=== PATIENT | male | born 1945 | race Caucasian/White ===

== ENCOUNTER 2023-09-21 06:36 | Outpatient (RCR) | payer MEDICARE, OTHER, SELFPAY | END 2023-09-21 23:59 | disposition home or self-care (01) | LOC: RPT 06:36 | PROVIDERS: ATTENDING PHYSICIAN Family Medicine | DX: R42 Dizziness and giddiness (principal) | CPT/HCPCS: 97162 ==

== ENCOUNTER → 2024-01-13 15:52 | Outpatient (REF) | payer MEDICARE, OTHER, SELFPAY | LOC: HWRAD 15:52 | PROVIDERS: ATTENDING PHYSICIAN Internal Medicine Critical Care Medicine; FAMILY PHYSICIAN Family Medicine | DX: R91.8 Other nonspecific abnormal finding of lung field (principal) | CPT/HCPCS: 71250 ==

== ENCOUNTER 2024-09-08 08:47 | Outpatient (RCR) | payer MEDICARE, OTHER, SELFPAY | END 2024-09-08 23:59 | disposition home or self-care (01) | LOC: RPT 08:47 | PROVIDERS: ATTENDING PHYSICIAN Orthopaedic Surgery; FAMILY PHYSICIAN Family Medicine | DX: Z47.89 Encounter for other orthopedic aftercare (principal); M54.16 Radiculopathy, lumbar region; Z73.6 Limitation of activities due to disability; M62.81 Muscle weakness (generalized); G62.9 Polyneuropathy, unspecified | CPT/HCPCS: 97110; 97163 ==

== ENCOUNTER 2024-09-20 08:53 | Outpatient (RCR) | payer MEDICARE, OTHER, SELFPAY | END 2024-09-20 23:59 | disposition home or self-care (01) | LOC: RPT 08:53 | PROVIDERS: ATTENDING PHYSICIAN Orthopaedic Surgery; FAMILY PHYSICIAN Family Medicine | DX: Z47.89 Encounter for other orthopedic aftercare (principal); M54.16 Radiculopathy, lumbar region; Z73.6 Limitation of activities due to disability; M62.81 Muscle weakness (generalized); G62.9 Polyneuropathy, unspecified | CPT/HCPCS: 97110 ==

== ENCOUNTER 2024-11-06 08:47 | Outpatient (RCR) | payer MEDICARE, OTHER, SELFPAY | END 2024-11-06 23:59 | disposition home or self-care (01) | LOC: RPT 08:47 | PROVIDERS: ATTENDING PHYSICIAN Orthopaedic Surgery; FAMILY PHYSICIAN Family Medicine | DX: Z47.89 Encounter for other orthopedic aftercare (principal); M54.16 Radiculopathy, lumbar region; Z73.6 Limitation of activities due to disability; M62.81 Muscle weakness (generalized); R26.2 Difficulty in walking, not elsewhere classified; M79.605 Pain in left leg; G62.9 Polyneuropathy, unspecified; M51.26 Other intervertebral disc displacement, lumbar region | CPT/HCPCS: 97110; 97164 ==

== ENCOUNTER → 2025-02-23 09:09 | Outpatient (REF) | payer MEDICARE, OTHER, SELFPAY | LOC: HWRAD 09:09 | PROVIDERS: ATTENDING PHYSICIAN Internal Medicine Critical Care Medicine; FAMILY PHYSICIAN Family Medicine | DX: R91.8 Other nonspecific abnormal finding of lung field (principal) | CPT/HCPCS: 71250 ==

== ENCOUNTER 2025-02-28 07:12 | Emergency (ER) | payer MEDICARE, OTHER, SELFPAY ==
[2025-02-28 07:22] VITALS: BP 125/55
--- NOTE | 2025-02-28 07:40 | ED.GENMED ---
History of Present Illness
General
Chief Complaint: Breathing Problem
Source: patient and records
Exam Limitations: none
Time Seen by Provider: 02/28/25 07:26
History of Present Illness
History of Present Illness:
79-year-old male history of bronchiectasis, followed by pulmonary not on any treatment had a CAT scan a few weeks ago hypertension non-smoker presents with a few days of cough productive sputum no fever using Tylenol due to back issue, no hemoptysis
no abdominal pain no chest pain, not taking inhaler
Past History
Past History
ED Past Medical History: Other (Benign essential tremor, sciatica), Other (Cataract) and Other (Bronchiectasis); Negative HTN
ED Past Surgical History: Orthopedic (Laminectomy 1992, 2008)
Social History
Tobacco: Non-smoker
Alcohol: Occasional
Drug: None
Personal:
Living: with family
Employment: Retired
Family History
Family History: Other (Noncontributory)
Review of Systems
Review of Systems
All Other Systems: Not applicable
Constitutional: Reports fatigue; Denies fever
EENT: Reports runny nose
Respiratory: Reports cough
Cardiac: Denies chest pain
: Reports no symptoms
Musculoskeletal: Reports no symptoms
Skin: Reports no symptoms
Phy Exam
Physical Exam
Physical Exam:
Physical Exam
General: Nontoxic male coughing
Neck: No jaundice
Heart: s1/s2 regular rate and rhythm, no murmur. equal radial pulses.
Lungs: Crackles bilaterally
Abdomen: Nontender
Neuro: alert and oriented. no focal neurological deficits
Skin: no rash
Psychiatric: well kept. interactive and cooperative
Extremities: no edema.
Scores
Heart Failure Risk
Heart Failure Risk Score: Not Applicable
Course
Orders/Labs/Results
Orders:
Orders
02/28/25 07:36
Electrocardiogram (*1) Stat
Reason for Study: Other
Other Reason for Exam: pneumonia
EKG- Treatment ONCE
Ipratropium/Albuterol Sulfate [Duoneb] 3 ml INH R NOW STA
CR Chest - 2 Views Urgent
Comment:
Reason For Exam: cough
02/28/25 07:41
Sputum Culture [Respiratory Culture/Gram Stain] Urgent
CASS Source: Sputum
Specimen Description:
Date Specimen was Collected: 02/28/25
Time Specimen was Collected: 07:49
02/28/25 08:04
COVID-19 Antigen Urgent
Source: Nasal Swab
Complete Blood Count/With Diff Urgent
Comprehensive Metabolic Panel Urgent
Influenza A+B Rapid Molecular Urgent
CASS Source: Nasal Swab
Specimen Description:
RSV [Respiratory Syncytial Virus] Urgent
CASS Source: Nasal Swab
Specimen Description:
Date Specimen was Collected: 02/28/25
Time Specimen was Collected: 07:49
02/28/25 09:02
CefTRIAXone [Rocephin] 1,000 mg IV NOW STA
02/28/25 09:08
Azithromycin [Zithromax] 500 mg PO NOW STA
Abnormal Lab Results
02/28/25
08:04
WBC 11.7 H 10^3/uL
(4.8-10.8)
RBC 3.64 L 10^6/uL
(4.70-6.10)
Hgb 11.2 L g/dL
(13.0-18.0)
Hct 33.3 L %
(39.0-52.0)
Abs Immat Gran (auto) 0.1 H 10^3/uL
(0-0.05)
Absolute Neuts (auto) 8.8 H 10^3/uL
(1.4-6.5)
Absolute Monos (auto) 1.4 H 10^3/uL
(0.1-0.6)
Lymphocytes % 10.2 L %
(20.5-51.1)
Monocytes % 11.7 H %
(1.7-9.3)
BUN 22 H mg/dl
(9-20)
Glucose 113 H mg/dl
(70-99)
02/28/25 08:04
02/28/25 08:04
Vital Signs
Initial and Last Documented VS:
Initial Vital Signs
Temp Pulse Resp BP Pulse Ox
99 F 78 16 125/55 97
02/28/25 07:22 02/28/25 07:22 02/28/25 07:22 02/28/25 07:22 02/28/25 07:22
Last Documented Vital Signs
Temp Pulse Resp BP Pulse Ox
99 F 78 16 125/55 97
02/28/25 07:22 02/28/25 07:22 02/28/25 07:22 02/28/25 07:22 02/28/25 07:22
MDM/Problems Addressed
Differential Diagnosis Includes:
Pneumonia bronchitis influenza viral syndrome
MDM/Problems Addressed:
Cough
Chronic conditions affecting care:
Bronchiectasis
Chronic conditions affecting care: HTN
Acute Exacerbation and/or Progression of Chronic Illness:
Bronchiectasis
*Radiology
Radiology exam reviewed: preliminary read by ED provider
*Pulse Oximetry
Patient hypoxic: no
*EKG
Interpreted by ED Provider?: Yes
Interpretation: normal
Comparison EKG: no comparison EKG present
Heart Rate: 78
Rate: normal
Rhythm: sinus
Ischemia: non-specific ST changes
*Banquet Bartender Interpretation
Rate: normal
Interpretation: normal
Heart Rate: 78
Rhythm: sinus
*Critical Care Note
Total Time (30-74mins, 75-104mins- exclusive of procedures): Not Applicable
Update Note
Update Note:
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
ED Attending Note
-
Portions of this chart may have been created with voice recognition software.� Occasional wrong word or��sound alike� substitutions may have occurred due to the inherent limitations of voice recognition software.
Discharge Plan
Departure
Condition: Good
Discharge Problem:
Pneumonia
Instructions: Pneumonia
Prescriptions:
New
amoxicillin-pot clavulanate 875-125 mg tablet
1 tab PO BID Qty: 20 0RF
azithromycin [Zithromax] 250 mg tablet
250 mg PO DAILY Qty: 4 0RF
methylprednisolone [Medrol (Gus)] 4 mg tablets,dose pack
See Rx Instructions .ROUTE .COMPLEX Qty: 21 0RF
Rx Instructions:
for 6 days
albuterol sulfate 90 mcg/actuation HFA aerosol inhaler
1 inh inhalation Q4H PRN (Reason: shortness of breath or wheezing) Qty: 8.5 2RF
No Action
latanoprost 0.005 % Drops
1 drp OPHTHALMIC (EYE) QPM
gabapentin 600 mg Tablet
600 mg PO TID
trazodone 50 mg Tablet
50 mg PO DAILY
meloxicam 15 mg Tablet
15 mg PO DAILY
Rx Instructions:
pt's med rec states '20 mg' is dose.
acetaminophen 650 mg Tablet Extended Release
650 mg PO .HS
tamsulosin 0.4 mg Capsule
0.4 mg PO DAILY
pregabalin 300 mg Capsule
300 mg PO BID
cholecalciferol (vitamin D3) [Vitamin D3] 50 mcg (2,000 unit) Capsule
50 mcg PO DAILY
Centrum Adults
1 tab PO DAILY
Fiber-Caps (psyllium husk)
2 cap PO DAILY
propranolol 60 mg Tablet
60 mg PO DAILY
dorzolamide-timolol 22.3-6.8 mg/mL Drops
1 drp OPHTHALMIC (EYE) BID
tramadol 50 mg tablet
50 mg PO Q6HPRN PRN (Reason: severe pain/breakthrough pain) Qty: 10 0RF
polyethylene glycol 3350 [Miralax] 17 gram/dose powder
4 g PO DAILY PRN (Reason: Constipation) Qty: 119 0RF
Rx Instructions:
start a laxative such as MIRALAX on day 2 after surgery if no bowel movement yet as long as no nausea/vomiting and passing gas
Referrals:
Jesse Barbosa MD [Family Provider] - Next open appointment
Eladio Spear MD [Active] - Keep scheduled appt
Interventions
Interventions:
*Risk Screen - Suicide Last Done: 02/28/25 07:22
*Neglect/Abuse Screening Last Done: 02/28/25 07:22
*ED- Fall Risk Assessment Last Done: 02/28/25 07:54
*ED COVID-19 Vaccine History Last Done: 02/28/25 07:54
ED- Cardiac Assessment Last Done: 02/28/25 07:54
ED- Pulmonary Assessment Last Done: 02/28/25 07:54
Discharge Date and Time
Print Language: [place] LEONE[place]
[2025-02-28 07:53] VITALS: BMI 23.9
[2025-02-28] MEDS: DUONEB 3 ML INH (08:06)
[2025-02-28 08:30] LABS: COVID-19 Antigen Negative (Negative)
[2025-02-28 08:34] LABS: ALT (SGPT) 29 U/L (0-50); AST (SGOT) 27 U/L (17-59); Albumin 3.8 g/dl (3.5-5.0); Alkaline Phosphatase 61 U/L (38-126); Blood Urea Nitrogen 22 mg/dl (9-20); Calcium 9.4 mg/dl (8.4-10.2); Carbon Dioxide 27 mmol/L (22-30); Chloride 106 mmol/L (98-107); Estimated Creatinine Clearance 85 ml/min; Glucose 113 mg/dl (70-99); Potassium 4.7 mmol/L (3.5-5.1); Sodium 140 mmol/L (135-145); Total Bilirubin 0.5 mg/dl (0.2-1.3); Total Protein 6.4 g/dl (6.3-8.2); eGFR > 60.00
[2025-02-28 08:37] LABS: % Basophils 0.3 % (0-2); % Eosinophils 2.4 % (0-6); % Immature Granulocytes 0.5 % (0-0.5); % Lymphocytes 10.2 % (20.5-51.1); % Monocytes 11.7 % (1.7-9.3); % Neutrophils 74.9 % (42.2-75.2); Absolute Eosinophils 0.3 10^3/uL (0-0.7); Absolute Immature Granulocytes 0.1 10^3/uL (0-0.05); Absolute Lymphocytes 1.2 10^3/uL (1.2-3.4); Absolute Monocytes 1.4 10^3/uL (0.1-0.6); Absolute Neutrophils 8.8 10^3/uL (1.4-6.5); Hematocrit 33.3 % (39.0-52.0); Hemoglobin 11.2 g/dL (13.0-18.0); Mean Corp Hgb Conc. 33.6 g/dL (33.0-37.0); Mean Corpuscular Hgb 30.8 pg (27.0-31.0); Mean Corpuscular Volume 91.5 fL (80.0-94.0); Mean Platelet Volume 9.5 fL (7.4-10.4); Nucleated Red Blood Cells % 0 % (-); Platelet Count 214 10^3/uL (130-400); Red Blood Cell Count 3.64 10^6/uL (4.70-6.10); Red Cell Dist. Width 12.7 % (11.5-14.5); White Blood Cell Count 11.7 10^3/uL (4.8-10.8)
[2025-02-28] MEDS: ZITHROMAX 500 MG PO (09:25)
[2025-02-28] MEDS: ROCEPHIN 1000 MG IV (09:25)
[2025-02-28 09:55] VITALS: BP 136/78
== END 2025-02-28 09:58 | disposition home or self-care (01) ==
LOC: EMR 07:12
PROVIDERS: EMERGENCY PHYSICIAN Emergency Medicine; FAMILY PHYSICIAN Family Medicine
DX: J18.9 Pneumonia, unspecified organism (principal); Z11.52 Encounter for screening for COVID-19; I10 Essential (primary) hypertension; G25.0 Essential tremor; M54.30 Sciatica, unspecified side; J47.9 Bronchiectasis, uncomplicated
CPT/HCPCS: 99284; 96374; 94640; 71046; 80053; 85025; 87070; 87205; 87502; 87807; 87811; 93005

== ENCOUNTER → 2025-04-13 08:53 | Outpatient (REF) | payer MEDICARE, OTHER, SELFPAY | LOC: HWRAD 08:53 | PROVIDERS: ATTENDING PHYSICIAN Internal Medicine Critical Care Medicine; FAMILY PHYSICIAN Family Medicine | DX: J18.9 Pneumonia, unspecified organism (principal) | CPT/HCPCS: 71046 ==